=== PATIENT | male | born 1950 | race Caucasian/White ===

== ENCOUNTER → 2016-10-25 | Outpatient (CLI) | payer MEDICARE, MEDICAID ==
[~2016-10-25] MED LIST: ANTIBIOTIC; ASPIR-TRIN325 MG PO; ATENOLOL25 MG PO; AUGMENTIN 875 M1 TA1; BACTRIM DS 8001 TA1 PO; BACTROBAN CREAM15 GM PO; CEFADROXIL500 M1 PO; FE-2020 MG PO; FERROUS SULFAT325 M1 PO; FLEXERIL10 MG PO; FLUOXETINE20 M1 PO; HYDROCODONE BIT1 T11 PO; INDOCIN50 MG PO; KEFLEX500 MG PO; LEVOTHYROXIN0.125 MG PO; MOTRIN800 MG PO; POLY VI SOL,MUL50 ML PO; PRILOSEC20 MG PO; RITE AID BRAND650 MG; SPIRIVA18 MCG INH; THERAPEUTIC VIT1 CAP PO; VICODIN 5/500 505 MG PO
[2016-10-25 13:31] LABS: HEMATOCRIT 29.6 % (42.0-52.0); HEMOGLOBIN 9.7 g/dl (14.0-18.0); MEAN CELL VOLUME 102.1 fl (80.0-94.0); MEAN CORPUSCULAR HGB 33.4 pg (27.0-31.0); MEAN CORPUSCULAR HGB CONC 32.8 g/dl (33.0-37.0); MEAN PLATELET VOLUME 9.3 fl (9.6-12.3); RED BLOOD COUNT 2.9 10*6/uL (4.50-5.90); RED CELL DISTRI WIDTH 15.6 % (0-14.5); WHITE BLOOD COUNT 4.2 10*3/uL (4.8-10.8)
[2016-10-25 13:52] LABS: IRON 101 ug/dL (65-175); IRON SATURATION 90 %; UIBC 10 ug/dL (110-410)
== END | disposition home or self-care (01) ==
LOC: LAB 13:04
PROVIDERS: Family Medicine
DX: D64.9 Anemia, unspecified (principal); R53.83 Other fatigue

== ENCOUNTER 2017-01-19 18:02 | Inpatient (IN) | payer MEDICARE, MEDICAID ==
[~2017-01-19] VITALS: Ht 175.3 cm; Wt 54.4 kg
--- NOTE | ~2017-01-19 | CON ---
[place], [place] REPORT OF CONSULTATION NAME: CALEB BLANK UNIT #: [id number] ROOM: 412 DOCTOR: PASCUAL WATERS MD BIRTHDATE: [birth year] DOS: 01/21/2017 REASON FOR CONSULTATION: Atrial fibrillation, duration is unknown. HISTORY OF PRESENT ILLNESS: A 66-year-old gentleman admitted with atrial fibrillation converted into sinus rhythm. The patient denied any chest discomfort, history of previous CA. Says that he had a heart catheterization, never had any stents put in. The patient is hypertensive, noncompliant. The patient was in atrial fibrillation, back into sinus rhythm, not on any anticoagulation. PAST MEDICAL HISTORY: Benign hypertension, respiratory infection, hypothyroidism, history of alcohol abuse and cirrhosis of the liver. MEDICATIONS: Atenolol 25 mg daily, Spiriva, levothyroxine, multivitamin and omeprazole. ALLERGIES: None. SOCIAL HISTORY: He is a cigar smoker and alcohol abuse. REVIEW OF SYSTEMS: CONSTITUTIONAL: No fever, no chills. HEENT: No visual disturbances or hearing problems. CARDIOVASCULAR: As described in HPI. GASTROINTESTINAL: No nausea, no vomiting. GENITOURINARY: No dysuria, hematuria. NEUROLOGIC: No syncope. All other review of systems is negative. PHYSICAL EXAMINATION: GENERAL: The patient is alert, oriented x 3, back into sinus rhythm. HEENT: Unremarkable. NECK: Supple, no JVD. VITAL SIGNS: Blood pressure is 136/70. LUNGS: Diminished air entry. HEART: Sounds are regular. ABDOMEN: Soft, nontender. NEUROLOGICAL: Stable. LABORATORY DATA: Hemoglobin 9.5, hematocrit 28.4. Troponins have been negative. Electrolytes are normal. As mentioned, TSH is 0.104 which is low. HDL is also low. T3 uptake is high. IMPRESSION: The patient with new onset of atrial fibrillation, paroxysmal, back into sinus rhythm. Echocardiogram showed an excellent ejection fraction. RECOMMENDATIONS: Because of the known history of myocardial infarction, tobacco abuse, agree with anticoagulation. Continue atenolol as ordered, ferrous sulfate, treat for hyperthyroidism and I will follow up. [place], [place] REPORT OF CONSULTATION NAME: CALEB BLANK UNIT #: [id number] ROOM: 412 DOCTOR: PASCUAL WATERS MD BIRTHDATE: [birth year] PASCUAL WATERS MD CM:CONSTR:REPORT OF CONSULTATION 0747 01/21/17 1014 interface
--- NOTE | ~2017-01-19 | PR ---
[place], [place] PROGRESS NOTE NAME: CALEB BLANK [facility] #: [id number] UNIT #: [id number] ROOM: 412 DOCTOR: SAUD BANKS MD BIRTHDATE: [birth year] DOS: SUBJECTIVE: The patient states that he feels fine and is not having any new complaints. OBJECTIVE: VITAL SIGNS: Graphic trend shows a pressure 136/79, pulse of 90s, respirations 20, temperature 97.9. LUNGS: Diminished breath sounds, clear. HEART: Regular. ABDOMEN: Soft. EXTREMITIES: Without any edema. ASSESSMENT AND PLAN: 1. Paroxysmal atrial fibrillation with rapid ventricular response. The patient is being anticoagulated with Coumadin. Protime is not available yet for ordering the Coumadin dose for today. 2. Benign hypertension, controlled. Heart rate is also controlled and he did undergo the stress test this morning. Echocardiogram showed left ventricular hypertrophy, but normal left ventricular function. Once he is well coagulated, the patient should be able to go home. 3. Lactic acidosis of unknown etiology, has come down. 4. Severe protein-calorie malnutrition with a redness in the buttock area and without any open sores. SAUD BANKS MD CM:PNTRANS 0 0 SAUD BANKS MD 01/21/17910 interface
--- NOTE | ~2017-01-19 | ST ---
[place], [place] EXERCISE STRESS TEST REPORT [id number] UNIT #: [id number] ROOM: 412 DOCTOR: SAUD BANKS MD BIRTHDATE: [birth year] DOS: 01/21/2017 REASON OF TESTING: Evaluation of precordial chest pain and rapid AFib. INTERPRETATION: After explaining the procedure and obtaining consent, the patient was subjected to Lexiscan infusion of 0.4 mg. The patient's EKG showed sinus rhythm, nonspecific ST-T wave changes. He did not have any complaints during the Lexiscan infusion. No arrhythmias or ST-T wave changes were seen. After the Lexiscan infusion was over, he was injected with Cardiolite and stress images were taken. ASSESSMENT AND PLAN: Lexiscan stress test without any ST-T wave changes or arrhythmias. Cardiolite images pending. SAUD BANKS MD CM:STRESS:EXERCISE STRESS TEST REPORT 0722 1004 SAUD BANKS MD
--- NOTE | ~2017-01-19 | DS ---
[place], [place] DISCHARGE SUMMARY NAME: CALEB BLANK [facility] #: [id number] UNIT #: [id number] ROOM: 412 DOCTOR: SAUD BANKS MD BIRTHDATE: [birth year] DOS: 01/22/2017 HOSPITAL COURSE: The patient is 66 years old who comes into the Emergency Room with complaints of increasing weakness and tiredness of about 3 weeks' duration. The patient stated that he was unable to walk. The patient was admitted because he was found to be in rapid AFib. He has history of paroxysmal AFib. He is on low dose atenolol. After being placed on IV Cardizem and IV heparin, his heart rate slowed down and IV Cardizem was later discontinued. Heparin was continued and was placed on Coumadin. Dr. Flannery was consulted. A stress test and an echocardiogram were performed. Echo showed normal LV function. Stress test does not show any reversible perfusion defects. An old scar was noted. The patient did have lactic acidosis on admission of unknown etiology. He also does have protein-calorie malnutrition and severe alcoholic cirrhosis with thrombocytopenia. He has hypothyroidism. The TSH was abnormal. So, the dosage of Synthroid was cut back. This may have precipitated his rapid AFib. For the protein-calorie malnutrition, he is encouraged to eat better and also not to drink any longer, especially since he is on Coumadin now. His pro time is 3.9 ____ this morning and we will discontinue the IV heparin protocol. He is stable and can be discharged to home. He is not going to be on Coumadin today or tomorrow. The pro time should slide down into the range of 2-2.5 by Tuesday. He needs to have a pro time performed on Tuesday and he will need to be started on Coumadin if his pro time is within normal limits with the range of about 2-2.5. The patient is being given a prescription for blood work and lab is to call Dr. Fisher and let him know the results of his pro time, so the patient's Coumadin can be started. He is being given a prescription for Coumadin of 2 mg to be started on Tuesday if his pro time becomes within the range of 2-2.5. His prescription otherwise will be levothyroxine 100 mcg, which is a dose change daily, warfarin 2 mg started on Tuesday if pro time is between 2 and 2.5, atenolol 25 daily, fluoxetine 20 daily, Spiriva 1 puff at bedtime, multivitamin 1 tablet daily, ProAir HFA 2 puffs q.i.d. p.r.n., iron 325 t.i.d., omeprazole 40 daily. Aspirin is being discontinued. DISCHARGE DIAGNOSES: 1. Paroxysmal atrial fibrillation with rapid atrial fibrillation, converted to sinus rhythm. 2. Adult failure to thrive. 3. Protein-calorie malnutrition. 4. Benign hypertension. 5. Alcoholic liver disease with thrombocytopenia. 6. Iron deficiency anemia. 7. Hypothyroidism. Dose adjustments made. 8. Chronic obstructive pulmonary disease. 9. Mild major depression, recurrent. 10. Gastroesophageal reflux disease. [place], [place] DISCHARGE SUMMARY [facility]ANK [id number] UNIT #: [id number] ROOM: [facility] DOCTOR: SAUD BANKS MD BIRTHDATE: [birth year] SAUD BANKS MD CM:DISCHANGELLA 0 8 SAUD BANKS MD 01/22/1749 interface
--- NOTE | ~2017-01-19 | PR ---
[place], [place] PROGRESS NOTE NAME: CALEB BLANK [facility] #: [id number] UNIT #: [id number] ROOM: 412 DOCTOR: SAUD BANKS MD BIRTHDATE: [birth year] DOS: SUBJECTIVE: The patient is not having any new complaints, continues to remain in sinus rhythm. He has not had any chest pains or shortness of breath. PHYSICAL EXAMINATION: VITAL SIGNS: Blood pressure is 100/69, pulse of 80, respirations 20, temperature 98.8. LUNGS: Diminished breath sounds, clear. HEART: Regular. ABDOMEN: Obese, soft. EXTREMITIES: Without any edema. LABORATORY DATA: Protime is 3.9 this morning. ASSESSMENT AND PLAN: 1. Paroxysmal atrial fibrillation with episode of rapid ventricular response on admission. The patient has converted to sinus rhythm and has been anticoagulated with Coumadin. Heparin will be discontinued. The patient can be discharged to home today. He will need to follow up with his PCP on Tuesday. He does not need any Coumadin over the weekend because protime is still high. He will be started on Coumadin 2 mg starting Tuesday if the protime is within range of 2-2.5, that is to be determined by his PCP on Tuesday. A prescription for 2 mg will be sent to the Pharmacy today. 2. Alcoholic liver disease. The patient states that he has not been drinking. 3. Anemia, chronic, which needs to be followed up again as an outpatient because now that the patient is on anticoagulants. Stress test was negative except for an old scar and we discussed with Dr. Flannery. The patient is stable and can be discharged. SAUD BANKS MD CM:PNTRANS 0840 SAUD BANKS MD 01/22/17 0841 interface
--- NOTE | ~2017-01-19 | WRIGHTHP ---
[place], [place] PATIENT HISTORY AND PHYSICAL EXAM NAME: CALEB BLANK [facility] #: [id number] UNIT #: [id number] ROOM: 412 DOCTOR: SAUD BANKS MD BIRTHDATE: [birth year] DOS: 01/19/2017 HISTORY OF PRESENT ILLNESS: This patient is a 66-year-old, known to me from a previous admission, comes in with complaints of increasing weakness and tiredness for about 3 weeks' duration. The patient was sent to the Emergency Room by her PCP, was found to be in rapid AFib when he arrived, was admitted. He was placed on IV Cardizem and IV heparin protocol. His heart rate slowed down into the 80s and his Cardizem has been discontinued. This morning, the patient feels good and is not having any complaints. Denies any chest pains, palpitations. Does not have any fever, any chills, any abdominal pain, nausea, or any emesis. He states for the last three weeks, he has been increasingly weak and therefore, has not been able to get to the bathroom fast, so he has a diaper on and he uses a walker to get to the bathroom. PAST MEDICAL HISTORY: Significant for; 1. Benign hypertension. 2. Paroxysmal atrial fibrillation, which he is not on any anticoagulants. 3. Gluteal abscess with history of last admission in 2011 for antibiotics and I and D. 4. Respiratory failure. 5. Hypothyroidism. 6. History of alcohol abuse and cirrhosis of liver. MEDICATIONS: That he is on are atenolol 25 mg daily, Spiriva 1 puff at bedtime, ProAir 2 puffs twice a day, aspirin 325 daily, iron 325 t.i.d., fluoxetine 20 daily, levothyroxine 112 mcg daily, multivitamin 1 tablet daily, omeprazole 40 daily. SOCIAL HISTORY: Nonsmoker, does not use any alcohol now. He lives at home with his . PHYSICAL EXAMINATION: GENERAL: He is awake. He does have a very long, unkempt fleming. VITAL SIGNS: Blood pressure is 115/80, pulse of 83, respirations 18, and temperature 98.2. LUNGS: Diminished breath sounds. No wheezes, rales, or rhonchi heard this morning. HEART: Regular. ABDOMEN: Obese, soft. EXTREMITIES: Without any edema. BACK: There is some redness in the buttock area, did not see any open areas. LABORATORY DATA: White cell count is 4.8, hemoglobin 9.2, hematocrit 27.3, platelets were 150. Lactic acid 4.1. Chest x-ray shows no evidence of any pneumonia. Urinalysis sent for culture, bacteria 1+ noted. CK was normal, MB is slightly suppressed. ASSESSMENT AND PLAN: 1. The patient with paroxysmal atrial fibrillation with rapid ventricular response. Right now, the patient was placed on IV Cardizem, heart rate had [place], [place] PATIENT HISTORY AND PHYSICAL EXAM NAME: CALEB BLANK UNIT #: [id number] ROOM: 412 DOCTOR: SAUD BANKS MD BIRTHDATE: [birth year] slowed down, switched to atenolol that he is already on and continue with IV heparin protocol and place him on Coumadin and I did inquire about carpenter for Xarelto ____. So I will place him on Coumadin, which is easily accessible because it is low cost. 2. Benign hypertension. Dr. Flannery has been consulted. He has requested the patient undergo a stress test, which is scheduled for tomorrow. 3. Hypothyroidism. The patient is on medications. His T3 uptake is slightly on the high side of 41 and TSH is suppressed. T4 is normal. Should cut back on the dose of his Synthroid. SAUD BANKS MD CM:HISPHYS:PATIENT HISTORY AND PHYSICAL EXAMINATION 1112 1147 SAUD BANKS MD 01/20/17 1322 interface
[2017-01-19 18:10] VITALS: BP 96/57
[2017-01-19] MEDS ORDERED: PROAIR HFA8.5 GM INH (18:10)
[2017-01-19 18:59] LABS: BASO % 0.3 % (0.0-1.0); EOS # 0.1 10*3/uL (0.0-0.4); EOS % 0.9 % (1.0-4.0); HEMATOCRIT 28.4 % (42.0-52.0); HEMOGLOBIN 9.5 g/dl (14.0-18.0); LYMPH # 0.9 10*3/uL (1.3-4.4); LYMPH % 15.9 % (27.0-41.0); MEAN CELL VOLUME 101.8 fl (80.0-94.0); MEAN CORPUSCULAR HGB 34.1 pg (27.0-31.0); MEAN CORPUSCULAR HGB CONC 33.5 g/dl (33.0-37.0); MEAN PLATELET VOLUME 9.7 fl (9.6-12.3); MONO # 0.6 10*3/uL (0.1-1.0); MONO % 10.3 % (3.0-9.0); NEUT # 4.2 10*3/uL (2.3-7.9); NEUT % 71.9 % (47.0-73.0); PLATELET COUNT AUTOMATED 161 10*3/uL (130-400); RED BLOOD COUNT 2.79 10*6/uL (4.50-5.90); RED CELL DISTRI WIDTH 16.8 % (0-14.5); WHITE BLOOD COUNT 5.8 10*3/uL (4.8-10.8)
[2017-01-19 19:09] LABS: INTERNATIONAL NORM RATIO 1.2 (2.0-3.5); PROTHROMBIN TIME 12.9 SECONDS (9.0-12.4)
[2017-01-19 19:16] LABS: ALBUMIN 2.5 gm/dl (3.1-4.5); ALKALINE PHOSPHATASE 283 U/L (45-117); BILIRUBIN, TOTAL 0.4 mg/dl (0.2-1.0); BUN 9 mg/dl (7-24); CARBON DIOXIDE 19 mmol/L (21-32); CHLORIDE 97 mmol/L (98-107); EST GLOM FILT AFRICAN AMERICAN > 60 ml/min; GLUCOSE 114 mg/dL (65-99); POTASSIUM 4.5 mmol/L (3.5-5.1); SGOT/AST 64 IU/L (3-35); SGPT/ALT 33 U/L (12-78); SODIUM 131 mmol/L (136-145); TOTAL PROTEIN 7.1 gm/dL (6.4-8.2)
[2017-01-19 19:17] LABS: TROPONIN I < 0.015 ng/ml (<0.045)
[2017-01-19 19:24] VITALS: BP 109/80
[2017-01-19 19:57] LABS: BILIRUBIN NEGATIVE (NEGATIVE); BLOOD NEGATIVE (NEGATIVE); CLARITY SL CLOUDY (CLEAR); COLOR YELLOW (YELLOW); GLUCOSE NEGATIVE (NEGATIVE); KETONE NEGATIVE (NEGATIVE); LEUKO ESTERASE NEGATIVE (NEGATIVE); NITRITE NEGATIVE (NEGATIVE); PROTEIN NEGATIVE (NEGATIVE); UROBILINOGEN 0.2 E.U./dl (0.2-1.0)
[2017-01-19 19:59] VITALS: BP 107/76
[2017-01-19 20:03] LABS: BACTERIA 1+; RBC 0-2 rbc/hpf (0-2); URINE REFLEX COMMENT NO (NO); WBC 0-2 wbc/hpf (0-5)
[2017-01-19 20:50] VITALS: BP 120/65
[2017-01-19 20:55] LABS: LA>2 REFLEX 2 HR DRAW NOW
[2017-01-19] MEDS ORDERED: FERROUS SULFAT324 M2 PO (21:06)
[2017-01-19] MEDS ORDERED: PRILOSEC20 M1 PO (21:07)
[2017-01-19 21:10] LABS: LA>2 RFLX FOLLOW UP AT 2 HRS 3.4 mmol/L (0.4-2.0)
[2017-01-19 23:06] LABS: LA>2 REFLEX 4 HR DRAW NOW
[2017-01-20] VITALS: BP 120/65
[2017-01-20 04:00] VITALS: BP 135/85
[2017-01-20 06:46] LABS: THYROID STIM HORMONE (HS) 0.104 uIU/ml (0.358-4.75)
[2017-01-20 07:18] LABS: FREE THYROXIN INDEX/T7 2.2 (1.4-4.7); THYROID STIM HORMONE (HS) 0.104 uIU/ml (0.358-4.75); THYROXINE (T4) TOTAL 5.5 ug/dl (4.5-12.1)
[2017-01-20 08:00] VITALS: BP 115/80
[2017-01-20 12:00] VITALS: BP 133/96
[2017-01-20 16:00] VITALS: BP 127/82
[2017-01-20 20:00] VITALS: BP 137/81
[2017-01-21] VITALS: BP 136/79
[2017-01-21 07:54] LABS: INTERNATIONAL NORM RATIO 1.5 (2.0-3.5); PROTHROMBIN TIME 16.4 SECONDS (9.0-12.4)
[2017-01-21 08:30] VITALS: BP 110/64
[2017-01-21 12:00] VITALS: BP 93/64
[2017-01-21 16:00] VITALS: BP 103/69
[2017-01-21 20:00] VITALS: BP 93/63
[2017-01-22] VITALS: BP 100/69
[2017-01-22 06:23] LABS: BASO % 0.6 % (0.0-1.0); EOS # 0.2 10*3/uL (0.0-0.4); EOS % 4.1 % (1.0-4.0); HEMOGLOBIN 8.1 g/dl (14.0-18.0); LYMPH # 1.9 10*3/uL (1.3-4.4); LYMPH % 37.7 % (27.0-41.0); MEAN CELL VOLUME 100.4 fl (80.0-94.0); MEAN CORPUSCULAR HGB 33.9 pg (27.0-31.0); MEAN CORPUSCULAR HGB CONC 33.8 g/dl (33.0-37.0); MEAN PLATELET VOLUME 10.1 fl (9.6-12.3); MONO # 0.6 10*3/uL (0.1-1.0); NEUT # 2.2 10*3/uL (2.3-7.9); NEUT % 44.4 % (47.0-73.0); PLATELET COUNT AUTOMATED 132 10*3/uL (130-400); RED BLOOD COUNT 2.39 10*6/uL (4.50-5.90); RED CELL DISTRI WIDTH 16.7 % (0-14.5); WHITE BLOOD COUNT 4.9 10*3/uL (4.8-10.8)
[2017-01-22 06:29] LABS: INTERNATIONAL NORM RATIO 3.9 (2.0-3.5); PROTHROMBIN TIME 45.5 SECONDS (9.0-12.4)
[2017-01-22] MEDS ORDERED: SYNTHROID RP0.1 MG PO (07:04)
[2017-01-22] MEDS ORDERED: COUMADIN2 M1 PO (07:04)
[2017-01-22 07:52] VITALS: BP 102/72
== END 2017-01-22 10:48 | disposition home or self-care (01) | DRG 308 ==
LOC: ED 18:02 → EDHOLD 20:13 → ICCU 20:13 → 4E 20:13 → ICCU 20:25 → 4E 22:38
PROVIDERS: Internal Medicine; Nurse Practitioner Family; Physician Assistant
PROC: 4A02XM4 Measurement of Cardiac Total Activity, External Approach (ICD-10-PCS; principal; 2017-01-21)
DX: I48.0 Paroxysmal atrial fibrillation (principal); E43 Unspecified severe protein-calorie malnutrition; K70.30 Alcoholic cirrhosis of liver without ascites; D69.6 Thrombocytopenia, unspecified; J44.9 Chronic obstructive pulmonary disease, unspecified; F33.0 Major depressive disorder, recurrent, mild; I10 Essential (primary) hypertension; E03.9 Hypothyroidism, unspecified; D64.9 Anemia, unspecified; R62.7 Adult failure to thrive; D50.9 Iron deficiency anemia, unspecified; K21.9 Gastro-esophageal reflux disease without esophagitis; Z68.22 Body mass index [BMI] 22.0-22.9, adult

== ENCOUNTER → 2017-01-24 | Outpatient (CLI) | payer MEDICARE, MEDICAID ==
[~2017-01-24] MED LIST changes: +COUMADIN2 M1 PO; +FERROUS SULFAT324 M2 PO; +PRILOSEC20 M1 PO; +PROAIR HFA8.5 GM INH; +SYNTHROID RP0.1 MG PO
[2017-01-24 15:11] LABS: INTERNATIONAL NORM RATIO 3.7 (2.0-3.5); PROTHROMBIN TIME 42.1 SECONDS (9.0-12.4)
== END | disposition home or self-care (01) ==
LOC: LAB 14:45
PROVIDERS: Family Medicine
DX: I48.91 Unspecified atrial fibrillation (principal)

== ENCOUNTER → 2017-02-01 | Outpatient (CLI) | payer MEDICARE, MEDICAID ==
[2017-02-01 14:26] LABS: INTERNATIONAL NORM RATIO 1.6 (2.0-3.5)
== END | disposition home or self-care (01) ==
LOC: LAB 13:19
PROVIDERS: Family Medicine
DX: I48.91 Unspecified atrial fibrillation (principal); Z79.01 Long term (current) use of anticoagulants

== ENCOUNTER → 2017-02-07 | Outpatient (CLI) | payer MEDICARE, MEDICAID | END | disposition home or self-care (01) | LOC: RAD 14:47 | DX: M79.672 Pain in left foot (principal); M25.475 Effusion, left foot ==

== ENCOUNTER 2017-02-14 19:00 | Inpatient (IN) | payer MEDICARE, MEDICAID ==
[~2017-02-14] VITALS: Ht 175.3 cm; Wt 57.8 kg
--- NOTE | ~2017-02-14 | WRIGHTHP ---
[place], [place] PATIENT HISTORY AND PHYSICAL EXAM NAME: CALEB BLANK [facility] #: [id number] UNIT #: [id number] ROOM: [facility] DOCTOR: SAUD BANKS MD BIRTHDATE: [birth year] DOS: 02/14/2017 HISTORY OF PRESENT ILLNESS: This patient is [id number]. Patient states that he was sitting at home, enjoying his dinner when he was called by the hospital to come in to the Emergency Room because of his blood work, he apparently had some routine blood work including a protime yesterday and his protime was quite high, so he arrived at the Emergency Room. He denied having any chest pains, palpitations, does not have any fever or chills, does not have any abdominal pain, nausea, any emesis. The patient states that he did have blood work on the of this month and the protime was too low at that time, he was asked to double his medications. He is not exactly sure what his dose of Coumadin is. After the medicine was increased he did not have any blood work until yesterday. PAST MEDICAL HISTORY: Significant for; 1. Recent hospitalization a month ago with atrial fibrillation with rapid ventricular response with anticoagulation given discharged to home. 2. Adult failure to thrive. 3. Protein-calorie malnutrition. 4. Benign hypertension. 5. Alcoholic liver disease with thrombocytopenia. 6. Iron deficiency anemia. 7. Hypothyroidism. 8. COPD. 9. ____ major depression, recurrent. 10. Gastroesophageal reflux disease. MEDICATIONS: That he was on at the time of discharge last month was Coumadin daily, levothyroxine 100 mcg, atenolol 25, fluoxetine 20, Spiriva 1 puff, multivitamin 1 tablet, ProAir HFA p.r.n., iron 325 daily, Omeprazole 40 daily. SOCIAL HISTORY: Nonsmoker. He drinks about 2 beers everyday. He lives at home. PHYSICAL EXAMINATION: VITAL SIGNS: Graphic trends show that he is afebrile; blood pressure is 131/93, pulse of 92, respirations 20, temperature 97.3. LUNGS: Diminished breath sounds, clear. HEART: Irregular. ABDOMEN: Obese, soft, nontender. EXTREMITIES: Without any edema protime. LABORATORY DATA: At the time of admission with an INR is more than 11. White blood cell count is 6.3, hemoglobin 8.9, hematocrit 26.6. BMP: Glucose 92, BUN 7, creatinine 1.06. Electrolytes were normal. Chest x-ray shows no active lung disease. ASSESSMENT AND PLAN: 1. The patient who presents with hypercoagulable state. The patient has been admitted, fresh frozen plasma was given protime this morning is down to INR of 3.9, discontinued the Coumadin because of his alcohol history and cirrhosis. He [place], [place] PATIENT HISTORY AND PHYSICAL EXAM [facility]: [id number] UNIT #: [id number] ROOM: [facility] DOCTOR: DARREN OVALLE,SAUD BIRTHDATE: [birth year] is not an ideal candidate for Coumadin rather he will be placed on Eliquis 5 mg twice a day. 2. Anemia, iron deficiency, already on supplements, slight drop in the iron most likely dilutional. We will need to have that checked as an outpatient. 3. Chronic atrial fibrillation. Heart rate is controlled on the current dose of medications. 4. Benign hypertension, controlled. He had a negative stress test and echocardiogram recently, so we are not repeating it should follow with ____. SAUD BANKS MD CM:HISPHYS:PATIENT HISTORY AND PHYSICAL EXAMINATION 0748 5 SAUD BANKS MD 02/15/17 0807 interface
--- NOTE | ~2017-02-14 | CON ---
[place], [place] REPORT OF CONSULTATION NAME: CALEB BLANK UNIT #: [id number] ROOM: [facility] DOCTOR: JT OVALLEPASCUAL BIRTHDATE: [birth year] DOS: 02/15/2017 HISTORY OF PRESENT ILLNESS: The patient is seen in the Intensive Care Unit. The patient came in with significant shortness of breath. The patient was recently here on 01/21/2017 underwent an EKG, showed significant ST depression in the anterior leads with intermittent atrial fibrillation. The patient's INR was significantly elevated to be 11. Given FFP ____. The patient was recently admitted as mentioned and came back with severe shortness of breath. The patient has significant history of anemia also. The patient was admitted at that time with atrial fibrillation also and was going in and out of atrial fibrillation, does have a history of previous [place] and says he had a heart catheterization. Never had any stents. The patient is hypertensive, very noncompliant. The patient came in with significant ST depressions in the lateral leads. PAST HISTORY: Benign hypertension, respiratory infection, hypothyroidism, alcohol abuse, cirrhosis of the liver. MEDICATIONS: Atenolol, Coumadin, multivitamin and omeprazole. ALLERGIES: None. He is a cigar smoker and alcohol abuse. The last ejection fraction was 55%. The patient is on iron, fenofibrate and atenolol. REVIEW OF SYSTEMS: CONSTITUTIONAL: No fever, no chills. HEENT: No visual disturbances. CARDIOVASCULAR: No chest pain. RESPIRATORY: Does have dyspnea on exertion. NEUROLOGIC: No syncope. GASTROINTESTINAL: No dysuria, hematuria. GENITOURINARY: Normal. NEUROLOGIC: No syncope. LABORATORY DATA: Hemoglobin was 8.9, down to 7.8. BUN and creatinine is normal. Cardiac enzymes, troponin is negative. Calcium is 7.7. INR was 11, down to 3.9. IMPRESSION: The patient with EKG shows significant ST depressions in the anterior leads. Recent stress test with six large scar with a known history of myocardial infarction, noncompliance with severe anemia. RECOMMENDATIONS: We will transfuse blood, probably set him up for a heart catheterization, and I will follow up with Dr. Wilson. [place], [place] REPORT OF CONSULTATION NAME: CALEB BLANK UNIT #: [id number] ROOM: [facility] DOCTOR: PASCUAL WATERS MD BIRTHDATE: [birth year] PASCUAL WATERS MD CM:CONSTR:REPORT OF CONSULTATION 0803 02/15/17 1019 interface
[2017-02-14 19:08] VITALS: BP 114/62
[2017-02-14] MEDS ORDERED: COUMADIN4 M2 PO (19:10)
[2017-02-14] MEDS ORDERED: COUMADIN5 M2 PO ×2 (19:11→19:12)
[2017-02-14 19:47] LABS: BASO % 0.5 % (0.0-1.0); EOS # 0.3 10*3/uL (0.0-0.4); EOS % 4.3 % (1.0-4.0); HEMATOCRIT 26.6 % (42.0-52.0); HEMOGLOBIN 8.9 g/dl (14.0-18.0); LYMPH # 1.6 10*3/uL (1.3-4.4); LYMPH % 25.4 % (27.0-41.0); MEAN CELL VOLUME 99.6 fl (80.0-94.0); MEAN CORPUSCULAR HGB 33.3 pg (27.0-31.0); MEAN CORPUSCULAR HGB CONC 33.5 g/dl (33.0-37.0); MEAN PLATELET VOLUME 9.7 fl (9.6-12.3); MONO # 0.6 10*3/uL (0.1-1.0); MONO % 9.7 % (3.0-9.0); NEUT # 3.8 10*3/uL (2.3-7.9); NEUT % 59.9 % (47.0-73.0); PLATELET COUNT AUTOMATED 156 10*3/uL (130-400); RED BLOOD COUNT 2.67 10*6/uL (4.50-5.90); WHITE BLOOD COUNT 6.3 10*3/uL (4.8-10.8)
[2017-02-14 20:05] LABS: BUN 7 mg/dl (7-24); CARBON DIOXIDE 20 mmol/L (21-32); CHLORIDE 100 mmol/L (98-107); EST GLOM FILT AFRICAN AMERICAN > 60 ml/min; GLUCOSE 92 mg/dL (65-99); MAGNESIUM 1.5 mg/dL (1.5-2.1); POTASSIUM 3.6 mmol/L (3.5-5.1); SODIUM 133 mmol/L (136-145)
[2017-02-14 20:12] LABS: TROPONIN I < 0.015 ng/ml (<0.045)
[2017-02-14 20:46] VITALS: BP 124/86
[2017-02-14 21:04] VITALS: BP 114/91
[2017-02-14 21:45] VITALS: BP 129/81
[2017-02-14 22:45] VITALS: BP 124/72
[2017-02-14 23:00] VITALS: BP 129/74
[2017-02-15] VITALS (20 sets, daily range): BP systolic 110–150; BP diastolic 58–93
[2017-02-15 04:25] LABS: HEMATOCRIT 23.1 % (42.0-52.0); HEMOGLOBIN 7.8 g/dl (14.0-18.0); LYMPH # 0.5 10*3/uL (1.3-4.4); LYMPH % 16.1 % (27.0-41.0); MEAN CELL VOLUME 99.1 fl (80.0-94.0); MEAN CORPUSCULAR HGB 33.5 pg (27.0-31.0); MEAN CORPUSCULAR HGB CONC 33.8 g/dl (33.0-37.0); MEAN PLATELET VOLUME 9.6 fl (9.6-12.3); NEUT # 2.5 10*3/uL (2.3-7.9); NEUT % 81.6 % (47.0-73.0); PLATELET COUNT AUTOMATED 129 10*3/uL (130-400); RED BLOOD COUNT 2.33 10*6/uL (4.50-5.90); RED CELL DISTRI WIDTH 14.9 % (0-14.5)
[2017-02-15 04:34] LABS: INTERNATIONAL NORM RATIO 3.9 (2.0-3.5); PROTHROMBIN TIME 44.9 SECONDS (9.0-12.4)
[2017-02-15] MEDS ORDERED: ELIQUIS5 M1 PO (06:43)
[2017-02-15 20:13] LABS: INTERNATIONAL NORM RATIO 2.1 (2.0-3.5); PROTHROMBIN TIME 23.8 SECONDS (9.0-12.4)
[2017-02-16] VITALS: BP 124/79
== END 2017-02-16 05:55 | disposition short-term general hospital (02) | DRG 815 ==
LOC: ED 19:00 → EDHOLD 20:04 → ICCU 20:04 → 4E 02-15 11:57
PROVIDERS: Internal Medicine; Internal Medicine Cardiovascular Disease; Student in an Organized Health Care Education/Training Program
PROC: 30233N1 Transfusion of Nonautologous Red Blood Cells into Peripheral Vein, Percutaneous Approach (ICD-10-PCS; principal; 2017-02-14)
PROC: 30233K1 Transfusion of Nonautologous Frozen Plasma into Peripheral Vein, Percutaneous Approach (ICD-10-PCS; principal; 2017-02-14)
PROC: 30233L1 Transfusion of Nonautologous Fresh Plasma into Peripheral Vein, Percutaneous Approach (ICD-10-PCS; principal; 2017-02-14)
DX: D68.59 Other primary thrombophilia (principal); J44.1 Chronic obstructive pulmonary disease with (acute) exacerbation; I48.2 Chronic atrial fibrillation; I10 Essential (primary) hypertension; D50.9 Iron deficiency anemia, unspecified; E03.9 Hypothyroidism, unspecified; I25.2 Old myocardial infarction; Z91.19 Patient's noncompliance with other medical treatment and regimen

== ENCOUNTER → 2017-02-22 | Outpatient (CLI) | payer MEDICARE, MEDICAID ==
[~2017-02-22] MED LIST changes: +COUMADIN4 M2 PO; +COUMADIN5 M2 PO; +ELIQUIS5 M1 PO
[2017-02-22 15:48] LABS: HEMATOCRIT 30.6 % (42.0-52.0); HEMOGLOBIN 10.3 g/dl (14.0-18.0); MEAN CELL VOLUME 96.5 fl (80.0-94.0); MEAN CORPUSCULAR HGB 32.5 pg (27.0-31.0); MEAN CORPUSCULAR HGB CONC 33.7 g/dl (33.0-37.0); MEAN PLATELET VOLUME 9.6 fl (9.6-12.3); RED BLOOD COUNT 3.17 10*6/uL (4.50-5.90); RED CELL DISTRI WIDTH 15.9 % (0-14.5); WHITE BLOOD COUNT 6.3 10*3/uL (4.8-10.8)
[2017-02-22 16:15] LABS: ALBUMIN 2.6 gm/dl (3.1-4.5); ALKALINE PHOSPHATASE 219 U/L (45-117); BILIRUBIN, TOTAL 0.5 mg/dl (0.2-1.0); BUN 8 mg/dl (7-24); CARBON DIOXIDE 22 mmol/L (21-32); CHLORIDE 97 mmol/L (98-107); CHOLESTEROL 93 mg/dL (<200); EST GLOM FILT AFRICAN AMERICAN > 60 ml/min; GLUCOSE 76 mg/dL (65-99); HDL CHOLESTEROL 51 mg/dl (40-60); LDL CHOLESTEROL 23 mg/dL (9-159); SGOT/AST 39 IU/L (3-35); SGPT/ALT 35 U/L (12-78); SODIUM 125 mmol/L (136-145); TOTAL PROTEIN 6.4 gm/dL (6.4-8.2); TRIGLYCERIDES 93 mg/dl (<150); VLDL CHOLESTEROL 19 mg/dL (6-40)
== END | disposition home or self-care (01) ==
LOC: LAB 15:03
PROVIDERS: Family Medicine
DX: I10 Essential (primary) hypertension (principal); J44.9 Chronic obstructive pulmonary disease, unspecified; E55.9 Vitamin D deficiency, unspecified; D64.9 Anemia, unspecified; R53.83 Other fatigue

== ENCOUNTER → 2017-03-01 | Outpatient (CLI) | payer MEDICARE, MEDICAID ==
[2017-03-01 16:35] LABS: BUN 8 mg/dl (7-24); CARBON DIOXIDE 22 mmol/L (21-32); CHLORIDE 99 mmol/L (98-107); EST GLOM FILT AFRICAN AMERICAN > 60 ml/min; GLUCOSE 88 mg/dL (65-99); POTASSIUM 5.2 mmol/L (3.5-5.1); SODIUM 130 mmol/L (136-145)
== END | disposition home or self-care (01) ==
LOC: LAB 15:08
PROVIDERS: Family Medicine
DX: E87.1 Hypo-osmolality and hyponatremia (principal); R60.0 Localized edema

== ENCOUNTER → 2017-03-31 | Outpatient (CLI) | payer MEDICARE, MEDICAID ==
[2017-03-31 18:04] LABS: ALBUMIN 2.5 gm/dl (3.1-4.5); ALKALINE PHOSPHATASE 362 U/L (45-117); BILIRUBIN, TOTAL 0.6 mg/dl (0.2-1.0); BUN 10 mg/dl (7-24); CARBON DIOXIDE 20 mmol/L (21-32); CHLORIDE 98 mmol/L (98-107); EST GLOM FILT AFRICAN AMERICAN > 60 ml/min; GLUCOSE 114 mg/dL (65-99); POTASSIUM 3.9 mmol/L (3.5-5.1); SGOT/AST 122 IU/L (3-35); SGPT/ALT 53 U/L (12-78); SODIUM 131 mmol/L (136-145); TOTAL PROTEIN 6.7 gm/dL (6.4-8.2)
== END | disposition home or self-care (01) ==
LOC: LAB 15:12
PROVIDERS: Family Medicine
DX: E87.1 Hypo-osmolality and hyponatremia (principal)

== ENCOUNTER 2017-04-05 23:35 | Inpatient (IN) | payer MEDICARE, MEDICAID ==
[~2017-04-05] VITALS: Ht 175 cm; Wt 58.1 kg
--- NOTE | ~2017-04-05 | CON ---
[place], [place] REPORT OF CONSULTATION NAME: CALEB BLANK [facility] #: [id number] UNIT #: [id number] ROOM: 524 DOCTOR: GRECIA GasparJOHANA BIRTHDATE: [birth year] DOS: 04/06/2017 WOUND CARE CONSULTATION HISTORY OF PRESENT ILLNESS: This is a 66-year-old male with a history of multiple medical problems, chronic debility and history of alcohol abuse, who presented to the Emergency Department after a fall. He apparently had rolled out of bed and once he fell onto the floor, he could not get back up. So, he laid on the floor for about an hour. Prior to that, charts indicate that he has been able to eat and drink as normal and he had a 24-ounce can of beer prior to that. He has a history of atrial fibrillation and is on Coumadin therapy. He usually uses a walker to get around. He also had notable abrasions to his arms from the fall and Wound Care was consulted for multiple wounds on his bilateral feet. PAST MEDICAL HISTORY: Significant for the following: Atrial fibrillation, acute EKG changes, anemia, coagulopathy, COPD exacerbation, laceration, shortness of breath. He has a history of a recent admission back in January where he was admitted for an increased INR. He was noted to have EKG changes. He has a history of respiratory infection and hypothyroidism. There is a history of alcohol abuse as well and cirrhosis of liver. There is a history of alcoholic liver disease and thrombocytopenia, protein calorie malnutrition, adult failure to thrive and history of major depression. ALLERGIES: No known drug allergies. CURRENT MEDICATIONS: That have been ordered are thiamine 100 mg p.o. daily, Prozac 20 mg p.o. daily, Prilosec 40 mg p.o. daily, levothyroxine 100 mcg daily, Eliquis 2.5 p.o. b.i.d., Ativan 0.5 q.6h., Atrovent inhalers 0.5 mg q.6h. SOCIAL HISTORY: The patient is a smoker. He currently smokes about 3 cigars a day. Prior to that, he is a smoker for many years, 1 pack per day. He does have a history of alcohol use. He states he drinks about 3 beers a day. He lives with his girlfriend. He ambulates with a walker. FAMILY HISTORY: Significant for diabetes and hypertension. REVIEW OF SYSTEMS: He is somewhat of a poor historian. He does not quite recall how he got these ulcers on his feet. They do appear to be related to pressure, likely from ill-fitting footwear. He says that they are not causing him any pain or discomfort. There is one on the right lateral foot on the pinky toe that is bothering him, but other than that, he does not have any pain or discomfort with the wounds. He denies any chest pains or shortness of breath. There is no reported history of nausea or vomiting or abdominal pain or cramping. The patient during my exam; however, had one episode of emesis that was noted. PHYSICAL EXAMINATION: VITAL SIGNS: Pulse of 90, respirations are 20, blood pressure is 109/68, pulse ox is 93% on room air. [place], [place] REPORT OF CONSULTATION NAME: CALEB BLANK UNIT #: [id number] ROOM: 524 DOCTOR: JOHANA PAIGE M.D. BIRTHDATE: [birth year] GENERAL: This is a markedly debilitated male who appears much older than his stated age, he is lying in bed in no acute distress. He is pale to examination. HEENT: Extraocular movements are intact. Sclerae are anicteric. NECK: I do not appreciate any JVD. LUNGS: Have coarse breath sounds bilaterally. CARDIOVASCULAR: S1, S2, regular rate and rhythm. ABDOMEN: Soft and nontender. EXTREMITIES: He has no edema. His pulses are difficult to feel. His toes are warm, but he does have what appears to be a delayed capillary refill. He has multiple ulcerations on his feet. There is one noted on the lateral side of the left foot that is markedly small, I would measure it at 0.3 x 0.3 x 0.1. There are several other excoriations and ulcerations present on the dorsal aspect of the toes, mostly on the right foot and some of them are dry. There is one noted on the medial malleolus that appears dry and stable. The wounds on the dorsum of the foot are fairly superficial. There is one that has on the left great toe that is open and this is probably the largest one at approximately 1 x 1 x 0.15 cm in depth. There is minimal fibrin and slough present in the base of the wound. It does not appear tender upon palpation. There is no sign of an acute infection and he has several other open ulcerations. There is one present on the lateral side of the right foot as well that is approximately 0.5 x 0.5 x 0.1. There are multiple excoriations at various stages of healing all over his legs. There is a larger wound located on the left lateral leg that is approximately 1.5 x 1 x 0.2 cm. It appears to be in a stage of healing. He has also what appears to be claw toe deformity bilaterally and he also has multiple abrasions of his arms and skin tears that are classified mostly as a skin tear. There is one on the left forearm that has some devitalized tissue that is nonadherent that is present and due to this fact, I did recommend debriding this area. The patient was agreeable to this. The area was cleansed with normal saline and sterile forceps and scissors were used to remove the devitalized tissue only. The wound itself is measuring approximately 2 x 1.5 x 0.1 cm in depth. It is superficial and only approximately 10-20% of this area was debrided with the forceps and scissors. No Cetacaine spray was used as the skin that was removed was devitalized, there was no sensation present. LABORATORY DATA: His white count is 6.7, hemoglobin is 8.8, hematocrit is 25.3, platelets are 143. Sodium is 124, chloride 92, bicarbonate is 19, calcium is 7.3. AST is 117, alkaline phosphatase is 325. Myoglobin is 719, albumin is low at 2.5. The patient had a CT of the head done, which showed no acute pathology and chronic small vessel changes noted. Chest x-ray shows chronic changes of COPD. He had a cervical spinal CT done as well. No acute cervical spine fracture noted, multilevel age-related osteoarthritic changes noted. ASSESSMENT AND PLAN: Multiple superficial ulcers of the bilateral feet as well as some marked excoriations on the leg as well that are poorly healing. I believe this is related to ill-fitting footwear. The other etiology may be that when he is ambulating, he is dragging his feet and that could be causing some of the ulcers as well, but it is not quite clear to me yet. He states that the wounds happened when he fell, but they do appear more chronic in nature. They are fairly superficial. There is no sign of infection. There is minimal fibrin and slough in the base of some of the wounds. I would at this point, recommend [place], [place] RE[facility] OF [facility]ATION [facility] [id number] UNIT #: [id number] ROOM: 524 DOCTOR: GRECIA Gaspar,JOHANA BIRTHDATE: [birth year] TheraHoney as a dressing, and I am also concerned about his vascular status and his smoking history. His peripheral pulses were difficult to feel, so I will go ahead and order an arterial Doppler to be done tomorrow morning. In addition, he has multiple abrasions and skin tears of his arms and I would use TheraHoney and Adaptic gauze as well and continue to monitor them carefully. There is no sign of infection with any of these either. He has marked debility, multiple medical problems that may make wound healing difficult and he continues to smoke and at some point, when he may need care home for rehabilitation as he is quite debilitated. He will likely need to have some footwear made for him once he is more medically stable to help accommodate his toes such as a wide toe box shoe to ensure that he has adequate room for his toes. Thank you for this consult. JOHANA PAIGE MD CM:CONSTR:REPORT OF CONSULTATION 05 04/06/171916 interface
--- NOTE | ~2017-04-05 | WRIGHTHP ---
[place], [place] PATIENT HISTORY AND PHYSICAL EXAM NAME: CALEB BLANK [facility] #: [id number] UNIT #: [id number] ROOM: 524 DOCTOR: DOLORES BERNSTEIN MD BIRTHDATE: [birth year] DOS: 04/06/2017 HISTORY OF PRESENT ILLNESS: 1. The patient is a 66-year-old gentleman with a past medical history of chronic atrial fibrillation and anticoagulation with apixaban. 2. Adult failure to thrive. 3. Protein calorie malnutrition. 4. Benign essential hypertension. 5. Alcoholic liver disease and thrombocytopenia. 6. Iron deficiency anemia. 7. Hypothyroidism. 8. COPD. 9. Major depression, recurrent, moderate. 10. GERD. The patient presented to the Emergency Department at [facility] after he fell out of bed. The patient was found to be intoxicated, hyponatremic, hypotensive in the Emergency Department and recommended for admission and further management. After admission, patient stated that he is starting to feel somewhat better. No complaints of any chest pain. No shortness of breath. No other GI or urinary symptoms. The patient states he has an ulcer on his left great toe from an injury he sustained about a week back and it has not healed. REVIEW OF SYSTEMS: LUNGS: No shortness of breath or wheezing. GASTROINTESTINAL: No nausea, vomiting, diarrhea, constipation. CARDIOVASCULAR: No chest pains or palpitations. HOME MEDICATIONS: Omeprazole, fluoxetine, Spiriva, levothyroxine, apixaban. ALLERGIES: No known drug allergies. FAMILY HISTORY: Noncontributory. PHYSICAL EXAMINATION: GENERAL: Alert and oriented x 3, poor historian. No visible distress. Generalized weakness. HEENT AND NECK: Extraocular movements are intact. Sclerae are anicteric. Oral mucosa is moist and clean. No obvious facial weakness. Neck is supple without any lymphadenopathy. No thyromegaly. No JVD. No carotid arterial bruits. LUNGS: Clear to auscultation. No wheezing. No rhonchi. CARDIOVASCULAR SYSTEM: Heart rate is regular in rate and rhythm. S1 and S2 normally audible. No significant murmur or any other abnormal cardiac sounds. ABDOMEN: Soft, nontender. No obvious organomegaly. Bowel sounds are present. No obvious herniation. EXTREMITIES: Without significant cyanosis or edema. Warm to touch. The patient also has a small, less than 0.5 cm superficial wound on the top of the left great toe without any surrounding cellulitis. CENTRAL NERVOUS SYSTEM: Alert and oriented x 3. Cranial nerves II-XII are [place], [place] PATIENT HISTORY AND PHYSICAL EXAM NAME: CALEB BLANK [facility] #: [id number] UNIT #: [id number] ROOM: 524 DOCTOR: DOLORES BERNSTEIN MD BIRTHDATE: [birth year] intact. Speech is normal. The patient is able to move all extremities. Normal muscle strength. Deep tendon reflexes are equal on both sides. Plantars were downgoing. LABORATORY DATA: Urinary drug screen was negative. Urinalysis without signs of infection. CT scan of the C-spine without acute abnormality. Chest x-ray showed COPD. CT scan of the head without any acute abnormality. Normal serum electrolytes except for sodium low at 124, hyponatremic. Alkaline phosphatase elevated at 325, AST elevated at 117, myoglobin 719. IMPRESSION AND PLAN: The patient with alcohol intoxication with chronic history of alcohol abuse, presenting with hyponatremia, possible rhabdomyolysis, is going to be treated with hydration and normal saline, serum electrolytes and sodium to be followed and patient is being started on physical therapy and will be kept on a hospital monitor. I am starting thiamine and small doses of Ativan to keep him withdrawing from alcohol. 1. Hyponatremia from alcohol abuse. 2. Elevation of liver enzymes from alcohol toxicity. 3. History of alcoholic liver cirrhosis with chronic thrombocytopenia in the past. 4. Anemia of chronic disease. 5. Adult failure to thrive. I would consult medical social worker and physical therapy. 6. Chronic atrial fibrillation. The patient anticoagulated with apixaban, which is being continued and heart rate are controlled. 7. Moderately severe protein calorie malnutrition related to his alcohol abuse and liver failure. 8. Benign essential hypertension. The patient was hypotensive, so I am stopping his blood pressure medications for now and blood pressures are to be monitored while he is on a monitored bed. 9. Major depression, moderate. I will continue his Prozac. DOLORES BERNSTEIN MD CM:HISPHYS:PATIENT HISTORY AND PHYSICAL EXAMINATION [id number] DOLORES BERNSTEIN MD 04/06/17 1417 interface
--- NOTE | ~2017-04-05 | DS ---
[place], [place] DISCHARGE SUMMARY NAME: CALEB BLANK [facility] #: [id number] UNIT #: [id number] ROOM: 524 DOCTOR: DOLORES BERNSTEIN MD BIRTHDATE: [birth year] DOS: 04/07/2017 DISCHARGE DIAGNOSES: 1. Alcohol intoxication. 2. Mild delirium tremens from alcohol withdrawal. 3. Large partially thrombosed left popliteal aneurysm, to be evaluated and treated by Vascular Surgery at [facility]. 4. Acute right 9th rib fracture from a fall. 5. Acute gastrointestinal bleed with Hemoccult stool positive and blood loss anemia, treated with blood transfusion, hemoglobin had dropped to 6.8 prior to transfusion. 6. Adult failure to thrive. 7. Chronic atrial fibrillation. The patient was anticoagulated with apixaban, which has been put on hold because of his acute gastrointestinal bleed and blood loss anemia. 8. Severe protein-calorie malnutrition. 9. Benign essential hypertension. 10. Hypotension secondary to blood loss anemia and dehydration. 11. Major depression, moderate. 12. Alcohol dependence. 13. Hyponatremia secondary to alcohol abuse. 14. Elevation of liver enzymes secondary to alcohol toxicity to liver. 15. History of alcoholic liver cirrhosis with chronic thrombocytopenia, apparently secondary to portal hypertension and hypersplenism. HOSPITAL COURSE: The patient presented to Emergency Department at [facility] when he fell out of bed. The patient was found to be intoxicated with alcohol, hyponatremic, and hypotensive and was admitted and started on hydration with IV fluids, normal saline. While he was at hospital, he showed early signs of delirium tremens including mental confusion, some shakiness and some agitation. The patient was started on Ativan, which helped the symptoms, but he became drowsy with it. The patient is able to wake up, but he is somewhat confused. The patient with superficial ulcers involving bilateral feet as well as marked excoriations on the leg, which are poorly healing. The patient also had a wound on top of the left great toe for about a week because of some minor injury the patient has had. This was followed by Dr. Neumann, the early intervention specialist, during his stay at the hospital and dressings were performed. The patient with large popliteal partially thrombosed aneurysm found on arterial Dopplers ordered by Dr. Neumann. ____ who does vascular intervention was consulted and he is transferring the patient to [facility] and the patient will be followed by ____ and Vascular Surgery consult will be obtained. Gastrointestinal bleed with blood loss anemia with hemoglobin of 6.8, treated with blood transfusion, and consult was obtained with Dr. Bradley who will also see him at [facility] when the patient is under the care of ____. Adult failure to thrive. [place], [place] DISCHARGE SUMMARY NAME: CALEB BLANK UNIT #: [id number] ROOM: 4 DOCTOR: DOLORES BERNSTEIN MD BIRTHDATE: [birth year] Alcohol abuse and dependence. Severe protein-calorie malnutrition. Benign essential hypertension. Alcoholic liver cirrhosis and thrombocytopenia with portal hypertension and hypersplenism. Centrilobular emphysema. Hypothyroidism. Major depression, recurrent, moderate, being followed. Gastroesophageal reflux disease and esophagitis, asymptomatic. Chronic atrial fibrillation for which the patient was anticoagulated with apixaban, which has been stopped because of his acute GI bleed for now. LABORATORY DATA: Urine drug screen was negative. Hemoglobin of 6.8 before blood transfusion. IFOBT test was positive for blood in stool. Arterial Dopplers of the lower extremities, results as mentioned above. CT of the head without acute abnormality. CT of the cervical spine without any acute abnormality. DISCHARGE MANAGEMENT: Fluoxetine 20 mg a day; Protonix 40 mg daily; levothyroxine 100 mg daily; thiamine 100 mg daily; ondansetron 8 mg every 6 hours p.r.n. for nausea , vomiting; and apixaban on hold, 2.5 mg b.i.d. The patient is being transferred to [facility] for vascular evaluation by Vascular Surgery, ____ and further GI evaluation by Dr. Bradley. [place], [place] DISCHARGE SUMMARY NAME: CALEB BLANK UNIT #: [id number] ROOM: 524 DOCTOR: DOLORES BERNSTEIN MD BIRTHDATE: [birth year] DOLORES BERNSTEIN MD CM:DISCHARG [id number] DOLORES BERNSTEIN MD 04/08/17 0705 interface
[2017-04-05 23:43] VITALS: BP 112/46
[2017-04-05] MEDS ORDERED: ELIQUIS2.5 M1 PO (23:45)
[2017-04-05] MEDS ORDERED: ATENOLOL50 M1 PO (23:45)
[2017-04-05] MEDS ORDERED: PRILOSEC20 M1 PO (23:46)
[2017-04-05] MEDS ORDERED: PROZAC20 MG PO (23:47)
[2017-04-05] MEDS ORDERED: LISINOPRIL5 MG PO (23:48)
[2017-04-06] VITALS (14 sets, daily range): BP systolic 77–128; BP diastolic 00–97
[2017-04-06 00:21] LABS: BASO % 0.2 % (0.0-1.0); EOS # 0.2 10*3/uL (0.0-0.4); EOS % 2.4 % (1.0-4.0); HEMATOCRIT 25.3 % (42.0-52.0); HEMOGLOBIN 8.8 g/dl (14.0-18.0); LYMPH # 1.5 10*3/uL (1.3-4.4); LYMPH % 22.4 % (27.0-41.0); MEAN CELL VOLUME 93.7 fl (80.0-94.0); MEAN CORPUSCULAR HGB 32.6 pg (27.0-31.0); MEAN CORPUSCULAR HGB CONC 34.8 g/dl (33.0-37.0); MEAN PLATELET VOLUME 9.7 fl (9.6-12.3); MONO # 0.3 10*3/uL (0.1-1.0); MONO % 4.2 % (3.0-9.0); NEUT # 4.7 10*3/uL (2.3-7.9); NEUT % 70.3 % (47.0-73.0); PLATELET COUNT AUTOMATED 143 10*3/uL (130-400); RED CELL DISTRI WIDTH 15.7 % (0-14.5); WHITE BLOOD COUNT 6.7 10*3/uL (4.8-10.8)
[2017-04-06 00:33] LABS: INTERNATIONAL NORM RATIO 1.5 (2.0-3.5); PROTHROMBIN TIME 16.1 SECONDS (9.0-12.4)
[2017-04-06 00:40] LABS: ALBUMIN 2.5 gm/dl (3.1-4.5); ALKALINE PHOSPHATASE 325 U/L (45-117); BILIRUBIN, TOTAL 0.4 mg/dl (0.2-1.0); BUN 12 mg/dl (7-24); CARBON DIOXIDE 19 mmol/L (21-32); CHLORIDE 92 mmol/L (98-107); CPK 202 U/L (39-308); EST GLOM FILT AFRICAN AMERICAN > 60 ml/min; GLUCOSE 88 mg/dL (65-99); MAGNESIUM 1.5 mg/dL (1.5-2.1); SGOT/AST 117 IU/L (3-35); SGPT/ALT 49 U/L (12-78); SODIUM 124 mmol/L (136-145); TOTAL PROTEIN 6.6 gm/dL (6.4-8.2)
[2017-04-06 00:44] LABS: TROPONIN I < 0.015 ng/ml (<0.045)
[2017-04-06 02:50] LABS: BILIRUBIN NEGATIVE (NEGATIVE); BLOOD NEGATIVE (NEGATIVE); CLARITY CLEAR (CLEAR); COLOR YELLOW (YELLOW); GLUCOSE NEGATIVE (NEGATIVE); KETONE NEGATIVE (NEGATIVE); LEUKO ESTERASE NEGATIVE (NEGATIVE); NITRITE NEGATIVE (NEGATIVE); PROTEIN NEGATIVE (NEGATIVE); SPECIFIC GRAVITY <= 1.005 (1.005-1.030); UROBILINOGEN 0.2 E.U./dl (0.2-1.0)
[2017-04-06 02:58] LABS: EPITHELIAL CELLS 0-5; URINE REFLEX COMMENT NO (NO); WBC 0-2 wbc/hpf (0-5)
[2017-04-06 02:59] LABS: URINE AMPHETAMINES < 1000 (1000ng/ml); URINE BARBITURATES < 200 (200ng/ml); URINE COCAINE < 300 (300ng/ml)
[2017-04-07] VITALS (15 sets, daily range): BP systolic 98–154; BP diastolic 65–97
[2017-04-07 06:53] LABS: BASO % 0.2 % (0.0-1.0); EOS % 0.6 % (1.0-4.0); HEMATOCRIT 19.8 % (42.0-52.0); HEMOGLOBIN 6.8 g/dl (14.0-18.0); LYMPH # 1.1 10*3/uL (1.3-4.4); MEAN CELL VOLUME 96.6 fl (80.0-94.0); MEAN CORPUSCULAR HGB 33.2 pg (27.0-31.0); MEAN CORPUSCULAR HGB CONC 34.3 g/dl (33.0-37.0); MEAN PLATELET VOLUME 10.1 fl (9.6-12.3); MONO # 0.3 10*3/uL (0.1-1.0); MONO % 6.6 % (3.0-9.0); NEUT # 3.6 10*3/uL (2.3-7.9); RED BLOOD COUNT 2.05 10*6/uL (4.50-5.90); WHITE BLOOD COUNT 5.1 10*3/uL (4.8-10.8)
[2017-04-07 06:54] LABS: PLATELET COUNT AUTOMATED 94 10*3/uL (130-400)
[2017-04-07 07:25] LABS: BUN 9 mg/dl (7-24); CARBON DIOXIDE 17 mmol/L (21-32); CHLORIDE 105 mmol/L (98-107); EST GLOM FILT AFRICAN AMERICAN > 60 ml/min; GLUCOSE 105 mg/dL (65-99); POTASSIUM 3.6 mmol/L (3.5-5.1); SODIUM 135 mmol/L (136-145)
[2017-04-07] MEDS ORDERED: VITAMIN B-11 TAB PO (20:46)
== END 2017-04-07 23:25 | disposition other institution (70) | DRG 981 ==
LOC: ED 23:35 → EDHOLD 04-06 03:07 → 5E 04-06 03:07
PROVIDERS: Emergency Medicine Emergency Medical Services; Internal Medicine
DX: F10.229 Alcohol dependence with intoxication, unspecified (principal); E43 Unspecified severe protein-calorie malnutrition; F10.231 Alcohol dependence with withdrawal delirium; I95.9 Hypotension, unspecified; D69.59 Other secondary thrombocytopenia; K92.2 Gastrointestinal hemorrhage, unspecified; I48.2 Chronic atrial fibrillation; K70.30 Alcoholic cirrhosis of liver without ascites; F33.1 Major depressive disorder, recurrent, moderate; E87.1 Hypo-osmolality and hyponatremia; S22.31XA Fracture of one rib, right side, initial encounter for closed fracture; J43.2 Centrilobular emphysema; R62.7 Adult failure to thrive; I72.4 Aneurysm of artery of lower extremity; I10 Essential (primary) hypertension; K21.0 Gastro-esophageal reflux disease with esophagitis; D50.0 Iron deficiency anemia secondary to blood loss (chronic); E03.9 Hypothyroidism, unspecified; L97.519 Non-pressure chronic ulcer of other part of right foot with unspecified severity; L97.529 Non-pressure chronic ulcer of other part of left foot with unspecified severity; D63.8 Anemia in other chronic diseases classified elsewhere; D50.9 Iron deficiency anemia, unspecified; Z79.899 Other long term (current) drug therapy; S40.811A Abrasion of right upper arm, initial encounter; Y90.9 Presence of alcohol in blood, level not specified; E86.0 Dehydration; S40.812A Abrasion of left upper arm, initial encounter; W06.XXXA Fall from bed, initial encounter; Y93.89 Activity, other specified; Y99.8 Other external cause status; Y92.89 Other specified places as the place of occurrence of the external cause; Z83.3 Family history of diabetes mellitus; Z82.49 Family history of ischemic heart disease and other diseases of the circulatory system; Z68.24 Body mass index [BMI] 24.0-24.9, adult